=== PATIENT | female | born 1940 | race American Indian/Alaskan Native ===

== ENCOUNTER → 2018-08-09 15:25 | Outpatient (CLI) | payer MEDICARE, OTHER, SELFPAY ==
--- NOTE | 2018-08-09 | DI.RAD.S_ITS ---
PROCEDURE: XR KNEE RT 3V INDICATIONS: Right KNEE/ANKLE PAIN TECHNIQUE: 3 views of the knee were acquired. COMPARISON: None. FINDINGS: Bones: No fractures or dislocations. No suspicious bony lesions. Scattered degenerative subchondral sclerosis and spurring. Mild narrowing of the medial and patellofemoral joint space. Soft tissues: Small joint effusion. No suspicious soft tissue calcifications. IMPRESSION: Small joint effusion. Mild right knee joint degeneration. Dictated by: Dax Angel M.D. on 08/09/2018 at 16:34 Approved by: Dax Angel M.D. on 08/09/2018 at 16:35
--- NOTE | 2018-08-09 | DI.RAD.S_ITS ---
PROCEDURE: XR ANKLE RT MIN 3V INDICATIONS: Right KNEE/ANKLE PAIN TECHNIQUE: 3 views of the ankle were acquired. COMPARISON: None. FINDINGS: Bones: No fractures or dislocations. Ankle mortise is normally aligned. No suspicious bony lesions. Plantar and posterior calcaneal spurring with Soft tissues: No tibiotalar joint effusion. Achilles tendon appears normal. IMPRESSION: Plantar and posterior calcaneal spurring. At Dictated by: Dax Angel M.D. on 08/09/2018 at 16:36 Approved by: Dax Angel M.D. on 08/09/2018 at 16:43
== END ==
PROVIDERS: Family Provider Family Medicine; PCP Family Medicine; Visit Provider Family Medicine
DX: M25.561 Pain in right knee (principal); M25.571 Pain in right ankle and joints of right foot; M17.11 Unilateral primary osteoarthritis, right knee; M25.461 Effusion, right knee; M77.31 Calcaneal spur, right foot; R26.9 Unspecified abnormalities of gait and mobility
CPT/HCPCS: 73562; 73610

== ENCOUNTER → 2021-11-25 14:42 | Outpatient (CLI) | payer MEDICARE, OTHER, SELFPAY ==
--- NOTE | 2021-11-25 14:47 | DI.ECHO.S_ITS ---
[facility]+ [facility] +---------+ : : [address] : [address] : : : : [id number] : : : : Phone: [phone]+ Echocardiogram Report + + :Name: LIANNE SEWELL Study Date: 11/25/2021 Height: 60 in : :[facility] ReadingLocation: Weight: 140 lb : : Gender: Female BSA: 1.6 m2 : :: 1940 Age: 81 yrs BP: 165/76 mmHg: :Reason For Study: Murmur : :Ordering Physician: SOL, : :SHANTI Performed By: Jorgito Leal : :Referring: SHANTI HORTON : + + Interpretation Summary The left ventricle is normal in size and wall thickness. Left ventricular systolic function is normal. The ejection fraction is estimated to be 60-65%. There are no focal wall motion abnormalities. The right ventricle is normal in size and function. Pulmonary artery pressures cannot be estimated because of the lack of a measurable TR jet velocity. There is mild aortic regurgitation. The aortic root is normal size. Procedure: A two-dimensional transthoracic echocardiogram with color flow and Doppler was performed. The study quality was technically difficult. Comparison is made with the echocardiogram of 04/20/2017. The patient was in normal sinus rhythm during the exam. Left Ventricle: The left ventricle is normal in size and wall thickness. Left ventricular systolic function is normal. The ejection fraction is estimated to be 60-65%. There are no focal wall motion abnormalities. Diastolic function could not be accurately assessed due to unobtainable data. Right Ventricle: The right ventricle is normal in size and function. Atria: The left atrium is not well visualized. The left atrium grossly appears normal in size. Right atrial size is normal. The interatrial septum grossly appears intact with no obvious evidence for an atrial septal defect. Mitral Valve: There is mild mitral annular calcification. There is trace mitral regurgitation. Aortic Valve: There is mild aortic valve sclerosis. The aortic valve is trileaflet. There is mild aortic regurgitation. Tricuspid Valve: The tricuspid valve is normal in structure and function. No tricuspid regurgitation. Pulmonary artery pressures cannot be estimated because of the lack of a measurable TR jet velocity. Pulmonic Valve: The pulmonic valve is not well visualized. Great Vessels: The aortic root is normal size. The dimensions of the ascending aorta are normal. The IVC is of normal diameter and collapses greater than 50% with a sniff. This suggests a low right atrial pressure of 3 mm Hg. Pericardium/ Pleura There is no pericardial effusion. There is no pleural effusion. MMode/2D Measurements & Calculations LVIDd: 4.8 cm LVOT diam: 1.9 cm LVIDs: 3.2 cm Ao root diam: 3.3 cm FS: 33.3 % asc Aorta Diam: 3.5 cm IVSd: 1.0 cm LVPWd: 1.0 cm LV garcia. diameter/BSA (cm/m^2): 3.0 LV sys. diameter/BSA (cm/m^2): 2.0 LA dimension: 3.5 cm RA long axis: 4.2 cm LA A2 area: 15.8 cm2 LA A4 area: 16.6 cm2 LA length (vol): 4.9 cm LA vol: 45.3 ml LA vol index: 28.3 ml/m2 TAPSE_phl: 2.0 cm Doppler Measurements & Calculations Ao V2 max: 136.0 cm/sec LVOT Max Raheel: 125.0 cm/sec Ao V2 mean: 97.6 cm/sec LV V1 max P.3 mmHg Ao max P.0 mmHg LV V1 VTI: 27.5 cm Ao mean P.0 mmHg TANIKA(I,D): 2.8 cm2 Ao V2 VTI: 27.6 cm TANIKA(V,D): 2.6 cm2 sev ratio: 1.00 TANIKA indexed to BSA (cm^2/m^2): 1.8 MV E max raheel: 92.5 cm/sec SV(LVOT): 78.0 ml MV A max raheel: 112.0 cm/sec MV E/A: 0.83 Med Peak E' Raheel: 5.1 cm/sec E/E' med: 18.0 Lat Peak E' Raheel: 9.0 cm/sec E/E' lat: 10.3 E/e' average: 14.2 MV dec time: 0.25 sec AV VR_phl: 0.92 MV P1/2t-pr_phl: 74.0 msec TANIKA(VTI)/BSA_phl: 1.8 Reading Physician:04:27 PM
== END ==
PROVIDERS: Family Provider Family Medicine; PCP Family Medicine; Referring Provider Family Medicine; Visit Provider Family Medicine
DX: I35.1 Nonrheumatic aortic (valve) insufficiency (principal); R01.1 Cardiac murmur, unspecified
CPT/HCPCS: 93306

== ENCOUNTER → 2022-07-01 15:02 | Outpatient (CLI) | payer MEDICARE, OTHER, SELFPAY ==
--- NOTE | 2022-07-01 | DI.RAD.S_ITS ---
PROCEDURE: XR RIBS LT MIN 3V W CXR1V INDICATIONS: RIB PAIN ON LEFT SIDE AFTER FALL TECHNIQUE: 2 views of the left ribs were acquired, along with a single view chest. COMPARISON: None. FINDINGS: Surgical changes and devices: None. Bones and chest wall: No fractures or dislocations. No suspicious bony lesions. Overlying soft tissues appear unremarkable. Lungs and pleura: No pleural effusions or pneumothorax. Lungs appear clear. Mediastinum: Mediastinal contours appear normal. Heart size is normal. IMPRESSION: No displaced fracture or pneumothorax. Dictated by: Tan Rivers M.D. on 07/01/2022 at 15:58 Approved by: Tan Rivers M.D. on 07/01/2022 at 15:59
== END ==
PROVIDERS: Family Provider Family Medicine; PCP Family Medicine; Referring Provider Registered Nurse; Visit Provider Registered Nurse
DX: R07.81 Pleurodynia (principal)
CPT/HCPCS: 71101

== ENCOUNTER → 2024-03-11 15:28 | Outpatient (CLI) | payer MEDICARE, OTHER, SELFPAY ==
--- NOTE | 2024-03-11 15:29 | DI.ECHO.S_ITS ---
[facility] + [facility] : : [address] : : [facility] : : [place], : : [place] [address] : : Phone: [phone] Echocardiogram Report + + :Name: LIANNE SEWELL Study Date: 03/11/2024 Height: 59 in : :[facility] ReadingLocation: Weight: 115 lb : : Gender: Female BSA: 1.5 m2 : :: 1940 Age: 83 yrs BP: 141/74 mmHg: :Reason For Study: FATIGUE : :Ordering Physician: DARIO DAVIDSON Performed By: Nilesh Wong : :Referring: DARIO DAVIDSON : + + Interpretation Summary Normal left ventricle size with ejection fraction 60-65%. The left atrium is mildly dilated. Mild aortic regurgitation. Mild to moderate mitral annular calcification. Comparison is made with the echocardiogram of 11/25/2021, no significant change. Procedure: A two-dimensional transthoracic echocardiogram with color flow and Doppler was performed. The study quality was technically adequate. Comparison is made with the echocardiogram of 11/25/2021. The patient was in normal sinus rhythm during the exam. Left Ventricle: The left ventricle is normal in size. There is normal left ventricular wall thickness. There is no ventricular septal defect visualized. The ejection fraction is estimated to be 60-65%. There are no focal wall motion abnormalities. Diastolic function could not be accurately assessed due to unobtainable data. Right Ventricle: The right ventricle is normal in size and function. Atria: The left atrium is mildly dilated. Right atrial size is normal. There is no Doppler evidence for an atrial septal defect. Mitral Valve: The mitral valve leaflets appear mildly thickened, but open well. There is mild to moderate mitral annular calcification. The mitral valve leaflets appear to open well. There is trace mitral regurgitation. Aortic Valve: The aortic valve is trileaflet. The aortic valve opens well. There is mild aortic regurgitation. Tricuspid Valve: The tricuspid valve leaflets are thin and pliable. No tricuspid regurgitation. Pulmonic Valve: The pulmonic valve is not well seen, but is grossly normal. There is no pulmonic valvular regurgitation. Great Vessels: The aortic root is normal size. The dimensions of the ascending aorta are normal. The pulmonary artery is normal size. The IVC is of normal diameter and collapses greater than 50% with a sniff. This suggests a low right atrial pressure of 3 mm Hg. Pericardium/ Pleura There is no pericardial effusion. There is no pleural effusion. MMode/2D Measurements & Calculations LVIDd: 4.0 cm LVOT diam: 1.9 cm LVIDs: 2.8 cm Ao root diam: 3.6 cm IVSd: 0.88 cm LVPWd: 0.79 cm LV garcia. diameter/BSA (cm/m^2): 2.8 LV sys. diameter/BSA (cm/m^2): 1.9 FS: 31.2 % RVD1 (basal): 3.0 cm RVD2 (mid): 2.4 cm TAPSE: 1.8 cm Doppler Measurements & Calculations Ao V2 max: 158.3 cm/sec LVOT Max Raheel: 108.8 cm/sec Ao V2 mean: 113.3 cm/sec LV V1 max P.7 mmHg Ao V2 VTI: 33.1 cm LV V1 VTI: 24.4 cm Ao max P.0 mmHg Ao mean P.6 mmHg TANIKA(I,D): 2.2 cm2 AI P1/2t: 394.8 msec TNAIKA(V,D): 2.0 cm2 AI dec slope: 292.1 cm/sec2 TANIKA indexed to BSA (cm^2/m^2): 1.5 sev ratio: 0.74 MV E max raheel: 80.1 cm/sec PA V2 max: 105.5 cm/sec PA V2 mean: 78.1 cm/sec PA mean P.7 mmHg PA Accel Time: 0.10 sec MV A dur: 0.01 sec SV(LVOT): 72.2 ml Electronically signed by: Davin Perez on Reading Physician:03/12/2024 11:38 AM
== END ==
LOC: ECHO 15:29
PROVIDERS: Family Provider Family Medicine; PCP Family Medicine; Referring Provider Nurse Practitioner Family; Visit Provider Nurse Practitioner Family
DX: I34.81 Nonrheumatic mitral (valve) annulus calcification (principal); I35.1 Nonrheumatic aortic (valve) insufficiency; R53.83 Other fatigue
CPT/HCPCS: 93306